=== PATIENT | female | born 1945 | race Caucasian/White ===

== ENCOUNTER → 2016-08-20 | Outpatient (CLI) | payer OTHER ==
[~2016-08-20] MED LIST: BLOOD PRESSURE MED PO; CHOLESTEROL MED PO; DIURETIC PO; DOLOBID PO; GLUC850T OR; LOTREL OR; LOVA40TA OR; METF750T OR; SPIR25TA2 OR; SYNT150T OR; THYROID MED PO; [UNRECOGNIZED DRUG - OTHER] OR
--- NOTE | 2016-08-20 08:39 | REPMRS ---
Patient History The patient states she has not had a clinical breast exam in over a year. Patient is postmenopausal and is nulliparous. Family history of breast cancer in mother at age 50 or over, breast cancer in maternal aunt at age 50 or over, and prostate cancer in 2 brothers at age 50 or over. Digital Woman Screen Mammo: August 20, 2016 - Exam #: [id number] Bilateral CC and MLO view(s) were taken. Technologist: Narda Haskins, Technologist Prior study comparison: June 11, 2015, digital woman screen mammo performed at [facility]. April 23, 2014, digital woman screen mammo performed at [facility]. March 27, 2013, digital woman screen mammo performed at [facility]. FINDINGS: There are scattered fibroglandular densities. There has been no change in the appearance of the mammogram from the prior studies. There is a mild amount of scattered fibroglandular density which is fairly symmetric. There is no interval development of dominant mass, architectural distortion, or clustered microcalcification suggestive of malignancy. ASSESSMENT: BI-RADS/ACR category 1 mammogram. Negative. Recommendation Routine screening mammogram in 1 year (for women over age 40). This mammogram was interpreted with the aid of an FDA-approved computer-aided dectection system. Electronically Signed By: Hany Cruz MD 08/20/16 0839
== END ==
LOC: M WHC 06:33
PROVIDERS: ATTEND Internal Medicine
DX: Z12.31 Encounter for screening mammogram for malignant neoplasm of breast (principal); Z80.3 Family history of malignant neoplasm of breast; Z78.0 Asymptomatic menopausal state

== ENCOUNTER 2016-12-08 06:29 | Outpatient (CLI) | payer OTHER ==
[~2016-12-08] VITALS: Ht 167.6 cm; Wt 117.9 kg
[~2016-12-08 06:29] MED LIST changes: +ATOR40TA75 PO; +BENA20TA8 PO; +CALTCHW4 PO; +CENT1TAB PO; +LEVO137T2 PO; +METF750T PO; +OCUVCAP PO; +SPIR25TA2 PO; +TYLE650T35 PO
[2016-12-08] MEDS ORDERED: NS 1,000 ML IV ONE (07:15)
[2016-12-08] MEDS ORDERED: PROPOFOL 500 MG/50 ML VIAL As Ordered ONE (08:04)
[2016-12-08] MEDS ORDERED: LIDOCAINE 2% INJ 100 MG/5 ML SDV (FOR ANES.) As Ordered ONE (08:04)
--- NOTE | 2016-12-08 08:23 | ROOR ---
Patient Name: Saige Arzola Procedure Date: 12/08/2016 8:01 AM Date of : 1945 Age: 71 Room: [facility] Gender: Female Note Status: Finalized Procedure: Colonoscopy Indications: High risk colon cancer surveillance: Personal history of colonic polyps Providers: Enrique HYDE MD Referring MD: LISA MILNER JR, MD Requesting Provider: Medicines: Monitored Anesthesia Care Complications: No immediate complications. Procedure: Pre-Anesthesia Assessment: - The heart rate, respiratory rate, oxygen saturations, blood pressure, adequacy of pulmonary ventilation, and response to care were monitored throughout the procedure. The Colonoscope was introduced through the anus and advanced to the cecum, identified by appendiceal orifice and ileocecal valve. The colonoscopy was performed without difficulty. The patient tolerated the procedure well. The quality of the bowel preparation was adequate. Findings: (EXAM: Complete, PREP:Adequate) Two sessile polyps were found in the ascending colon. The polyps were diminutive in size. These polyps were removed with a jumbo cold forceps. Resection and retrieval were complete. The exam was otherwise without abnormality. Impression: - (EXAM: Complete, PREP:Adequate) - Two diminutive polyps in the ascending colon, removed with a jumbo cold forceps. Resected and retrieved. - The examination was otherwise normal. Recommendation: - Telephone endoscopist for pathology results in 2 weeks. - If the pathology report reveals adenomatous tissue, then repeat the colonoscopy for surveillance in 5 years. Enrique Hyde MD Enrique HYDE MD 12/08/2016 8:22:55 AM This report has been signed electronically. Number of Addenda: 0 Note Initiated On: 12/08/2016 8:01 AM Estimated Blood Loss: Estimated blood loss: none.
[2016-12-08 08:45] VITALS: BP 142/79
== END 2016-12-08 09:00 | disposition home or self-care (01) ==
LOC: M OPP 06:29
PROVIDERS: ATTEND Internal Medicine Gastroenterology
DX: Z12.11 Encounter for screening for malignant neoplasm of colon (principal); Z86.010 Personal history of colon polyps; D12.2 Benign neoplasm of ascending colon; K59.00 Constipation, unspecified; I10 Essential (primary) hypertension; E78.5 Hyperlipidemia, unspecified; E11.9 Type 2 diabetes mellitus without complications; E03.9 Hypothyroidism, unspecified; E66.9 Obesity, unspecified; M19.90 Unspecified osteoarthritis, unspecified site; G47.8 Other sleep disorders; M54.9 Dorsalgia, unspecified; Z79.84 Long term (current) use of oral hypoglycemic drugs; Z79.899 Other long term (current) drug therapy; Z80.3 Family history of malignant neoplasm of breast; Z80.1 Family history of malignant neoplasm of trachea, bronchus and lung; Z80.42 Family history of malignant neoplasm of prostate; Z80.0 Family history of malignant neoplasm of digestive organs

== ENCOUNTER → 2017-07-15 | Outpatient (CLI) | payer OTHER | LOC: M RAD 12:18 | DX: K11.20 Sialoadenitis, unspecified (principal); R93.8 Abnormal findings on diagnostic imaging of other specified body structures | CPT/HCPCS: 70490 ==

== ENCOUNTER → 2017-09-09 | Outpatient (CLI) | payer OTHER | LOC: M WHC 06:36 | DX: Z12.31 Encounter for screening mammogram for malignant neoplasm of breast (principal) | CPT/HCPCS: 77067 ==

== ENCOUNTER → 2018-09-09 | Outpatient (REF) | payer MEDICARE ==
[~2018-09-09] MED LIST changes: +SPIR-10 PO; -SPIR25TA2 PO
== END ==
LOC: M SFHCWAGY 11:53
PROVIDERS: ATTEND Family Medicine
DX: N90.4 Leukoplakia of vulva (principal)
CPT/HCPCS: 11104; 88305; G0463

== ENCOUNTER → 2018-10-04 | Outpatient (REF) ==
[2018-10-05 09:02] LABS: RUBELLA IgG QUALITATIVE SUSCEPTIBLE (IMMUNE)
== END ==
LOC: M LAB 09:11
PROVIDERS: ATTEND Nurse Practitioner Adult Health
DX: Z00.00 Encounter for general adult medical examination without abnormal findings (principal)

== ENCOUNTER → 2018-10-20 | Outpatient (REF) | payer MEDICARE ==
[2018-10-20 16:04] LABS: FOLATE > 24.0 NG/ML (>5.4); VITAMIN B12 LEVEL 693 PG/ML (247-911)
== END ==
LOC: M LABDRAW1 13:48
PROVIDERS: ATTEND Internal Medicine Endocrinology, Diabetes & Metabolism
DX: E11.65 Type 2 diabetes mellitus with hyperglycemia (principal)

== ENCOUNTER → 2018-11-14 | Outpatient (CLI) | payer MEDICARE ==
--- NOTE | 2018-11-14 09:19 | REPMRS ---
Patient History The patient states she has not had a clinical breast exam in over a year. Patient is postmenopausal and is nulliparous. Family history of breast cancer at age 50 or over in mother, prostate cancer at age 50 or over in brother, prostate cancer at age 50 or over in brother, breast cancer at age 50 or over in maternal aunt, breast cancer at age 32 in niece. Digital Woman Screen Mammo: November 14, 2018 - Exam #: [id number] Bilateral CC and MLO view(s) were taken. Technologist: Joelle Robert Technologist Prior study comparison: September 09, 2017, bilateral digital woman screen mammo performed at [facility]. August 20, 2016, digital woman screen mammo performed at [facility]. June 11, 2015, digital woman screen mammo performed at [facility]. FINDINGS: There are scattered fibroglandular densities. This is stable 1.1 cm nodule in the anterior third of the left breast superiorly. There has been no change in the appearance of the mammogram from the prior studies. There is a mild amount of scattered fibroglandular density which is fairly symmetric. There is no interval development of dominant mass, architectural distortion, or grouped microcalcification suggestive of malignancy. 3-D tomosynthesis shows no additional findings. Assessment: BI-RADS/ACR category 2 mammogram. Benign Findings. Recommendation Routine screening mammogram of both breasts in 1 year (for women over age 40). This patient's Lifetime Breast Cancer Risk is estimated at 10.7 %. This mammogram was interpreted with the aid of an FDA-approved computer-aided dectection system. Electronically Signed By: Hany Cruz MD 11/14/18 0919
== END ==
LOC: M WHC 07:17
PROVIDERS: ATTEND Internal Medicine
DX: Z12.31 Encounter for screening mammogram for malignant neoplasm of breast (principal); Z78.0 Asymptomatic menopausal state; Z80.3 Family history of malignant neoplasm of breast

== ENCOUNTER → 2020-02-16 | Outpatient (CLI) | payer MEDICARE ==
[~2020-02-16] MED LIST changes: +ACET650T61 PO; -METF750T PO; +METF750T36 PO; -TYLE650T35 PO
--- NOTE | 2020-02-16 09:19 | REPMRS ---
Patient History The patient states she has not had a clinical breast exam in over a year. Patient is postmenopausal and is nulliparous. Family history of breast cancer at age 50 or over in mother, prostate cancer at age 50 or over in brother, prostate cancer at age 50 or over in brother, breast cancer at age 50 or over in maternal aunt, breast cancer at age 32 in niece. 3D TOMOSYNTHESIS WAS PERFORMED. [facility] lifetime risk for breast cancer is 10.0%. Volpara breast density b. Digital Woman Screen Mammo: February 16, 2020 - Exam #: [id number] Bilateral CC and MLO view(s) were taken. Technologist: Wen Jean Baptiste, Technologist Prior study comparison: November 14, 2018, bilateral digital woman screen mammo performed at [facility]. September 09, 2017, bilateral digital woman screen mammo performed at [facility]. FINDINGS: There are scattered fibroglandular densities. There has been no change in the appearance of the mammogram from the prior studies. There is a mild amount of residual fibroglandular tissue which is fairly symmetric. There is no interval development of dominant mass, architectural distortion, or clustered microcalcification suggestive of malignancy. Assessment: BI-RADS/ACR category 1 mammogram. Negative Mammogram. Recommendation Routine screening mammogram in 1 year (for women over age 40). This mammogram was interpreted with the aid of an FDA-approved computer-aided dectection system. Electronically Signed By: Joseph Whitmore MD 02/16/20 0918
== END ==
LOC: M WHC 06:21
PROVIDERS: ATTEND Internal Medicine
DX: Z12.31 Encounter for screening mammogram for malignant neoplasm of breast (principal); Z80.3 Family history of malignant neoplasm of breast; Z80.42 Family history of malignant neoplasm of prostate

== ENCOUNTER → 2020-09-26 | Outpatient (CLI) | payer MEDICARE ==
--- NOTE | 2020-09-26 09:58 | DEXAMM ---
INDICATION: M81.0 AGE RELATED OSTEOPOROSIS. COMPARISON: Comparison densitometry studies November 25, 2006 and October 13, 2001.. TECHNIQUE: Bone density was measured using dual-energy x-ray absorptionmetry (DEXA). FINDINGS: AP SPINE L1-L4 BMD 1.204 g/cm2 Young Adult T-Score 0.1 Age Matched Z-Score 1.8. LT FEMUR, TOTAL BMD 1.141 g/cm2 Young Adult T-Score 1.1 Age Matched Z-Score 2.8. LT NECK BMD 0.923 g/cm2 Young Adult T-Score -0.8 Age Matched Z-Score 1.1. RT FEMUR, TOTAL BMD 1.152 g/cm2 Young Adult T-Score 1.1 Age Matched Z-Score 2.9. RT NECK BMD 0.975 g/cm2 Young Adult T-Score -0.5 Age Matched Z-Score 1.5. IMPRESSION: There is normal bone density of the spine. There is normal bone density of the left hip. There is normal bone density of the right hip. The density of the spine has increased 5.6% since the initial exam on October 13, 2001. The density of the spine decreased 1.6% since most recent exam on November 25, 2006. The density of the left hip has decreased 3.7% since initial exam on October 13, 2001. The density of the left hip has decreased 4.4% since most recent exam on November 25, 2006. The density of the right hip has decreased 2.4% since the initial exam on October 13, 2001. The density of the right hip has decreased 2.3% since the most recent exam on November 25, 2006. FOLLOW-UP: Recommendation for the next bone density exam: 5 years. <Electronically signed by Hany Cruz > 09/26/20 0954
== END ==
LOC: M WHC 08:45
PROVIDERS: ATTEND Internal Medicine
DX: M81.0 Age-related osteoporosis without current pathological fracture (principal)

== ENCOUNTER 2020-11-29 14:11 | Emergency (ER) | payer MEDICARE ==
[~2020-11-29] VITALS: Ht 167.6 cm; Wt 116.6 kg
--- NOTE | 2020-11-29 15:09 | REP ---
INDICATION: CHEST PAIN. COMPARISON: Comparison chest x-ray is from February 27, 2010. TECHNIQUE: Portable upright AP chest radiograph. FINDINGS: The lungs are well inflated and free of infiltrate. Pleural angles are sharp. Heart size is normal. Pulmonary vasculature is not increased. There are degenerative changes in the thoracic spine. IMPRESSION: No active disease. <Electronically signed by Hany Cruz > 11/29/20 [id number]
[2020-11-29 16:16] LABS: BASO # 0.1 10^3/uL (0.0-0.2); BASO % 0.9 % (0.0-1.0); EOS # 0.1 10^3/uL (0.0-0.5); EOS % 2.4 % (0.0-3.0); HEMATOCRIT 40.8 % (36.0-47.0); HEMOGLOBIN 13.5 g/dl (12.0-15.5); LYMPH # 1.4 10^3/uL (1.5-5.0); LYMPH % 24.9 % (24.0-44.0); MEAN CORPUSCULAR HGB CONC 33.1 g/dl (32.0-36.5); MEAN CORPUSCULAR VOLUME 93.8 fl (80.0-96.0); MONO # 0.4 10^3/uL (0.0-0.8); MONO % 7.5 % (2.0-8.0); NEUTROPHILS # 3.7 10^3/uL (1.5-8.5); NEUTROPHILS % 64.1 % (36.0-66.0); PLATELET COUNT, AUTOMATED 158 10^3/uL (150-450); RED BLOOD COUNT 4.35 10^6/uL (4.00-5.40); WHITE BLOOD COUNT 5.8 10^3/uL (4.0-10.0)
[2020-11-29 16:47] LABS: ALBUMIN 3.5 GM/DL (3.2-5.2); ALT/SGPT 35 U/L (12-78); AMYLASE 77 U/L (25-115); BILIRUBIN,DIRECT < 0.1 MG/DL (0.0-0.2); BILIRUBIN,TOTAL 0.5 MG/DL (0.2-1.0); BLOOD UREA NITROGEN 18 MG/DL (7-18); CALCIUM LEVEL 9.4 MG/DL (8.8-10.2); CARBON DIOXIDE LEVEL 26 MEQ/L (21-32); CHLORIDE LEVEL 110 MEQ/L (98-107); CK-MB VALUE MASS < 1.0 NG/ML (<3.6); CPK CREATINE PHOSPHOKINASE 76 U/L (26-192); GLOMERULAR FILTRATION RATE > 60.0 (>39); GLUCOSE, FASTING 133 MG/DL (70-100); LIPASE 102 U/L (73-393); MB/CK RELATIVE INDEX 1.32 (< OR =4); SODIUM LEVEL 142 MEQ/L (136-145); TOTAL PROTEIN 6.8 GM/DL (6.4-8.2); TROPONIN I < 0.02 NG/ML (< 0.10)
--- NOTE | 2020-11-29 17:38 | REP ---
INDICATION: epigastric pain. COMPARISON: None. TECHNIQUE: Real-time sonographic evaluation of right upper quadrant performed. FINDINGS: The gallbladder demonstrates no evidence of intraluminal sludge or calculi, wall thickening or pericholecystic fluid. There is no intrahepatic or extrahepatic biliary dilatation, common bile duct measures 3 mm in maximum diameter. The liver demonstrates 2 heterogeneous solid masses in the left lobe of the liver, 3.4 x 2.2 x 3.5 cm and 2.4 x 1.5 x 2.9 cm. The visualized pancreas is grossly unremarkable, not well seen due to overlying bowel gas. The right kidney demonstrates no hydronephrosis, with a normal size of 11.8 cm in length. No free fluid is seen. IMPRESSION: Two solid masses in the left lobe of the liver having maximum diameters of 3.5 cm and 2.9 cm. Recommend further evaluation with dedicated MRI or CT of the liver with and without contrast. <Electronically signed by Joseph Whitmore > 11/29/20 [id number]
[2020-11-29 17:45] VITALS: BP 169/84
[2020-11-29] MEDS ORDERED: KETOROLAC 30 MG/ML 1ML VIAL IV ONE (17:45)
[2020-11-29] MEDS ORDERED: IBUP-1022 PO (18:23)
--- NOTE | 2020-11-30 06:44 | ED PDOC ---
Post-Departure Follow-Up US faxed to dr gibson for fu Gracia Gonzales MD Nov 30, 2020 06:44
--- NOTE | 2020-12-02 16:31 | ECGEPIP ---
[facility] - ED Test Date: 2020-11-29 Pat Name: HUGO WAGNER Department: Room: - Gender: Female Material Specialist: vilma : 1945 Requested By: DINORAH Menjivar Order Number: [id number] Reading MD: Rachel De La Rosa Measurements Intervals [place] Rate: 82 P: 42 MI: 172 QRS: 47 QRSD: 86 T: 43 QT: 404 QTc: 472 Interpretive Statements Normal sinus rhythm NSTTW abnormalities No prior Electronically Signed on 12-02-2020 16:31:43 EDT by Rachel De La Rosa
== END 2020-11-29 18:55 | disposition home or self-care (01) ==
LOC: M ED 14:11
DX: R10.13 Epigastric pain (principal); K76.89 Other specified diseases of liver; M51.34 Other intervertebral disc degeneration, thoracic region; E03.9 Hypothyroidism, unspecified; E78.5 Hyperlipidemia, unspecified; Z90.710 Acquired absence of both cervix and uterus; Z88.0 Allergy status to penicillin; Z79.899 Other long term (current) drug therapy; Z79.890 Hormone replacement therapy
CPT/HCPCS: 71045; 76705; 80048; 80076; 82150; 82550; 82553; 83690; 84484; 85025; 93005; 93041; 94760; 96374; 99285; J1885

== ENCOUNTER → 2020-12-05 | Outpatient (REF) | payer MEDICARE ==
[~2020-12-05] MED LIST changes: +IBUP-1022 PO
== END ==
LOC: M LAB REF 13:46
PROVIDERS: ATTEND Internal Medicine
DX: R06.00 Dyspnea, unspecified (principal); R07.9 Chest pain, unspecified

== ENCOUNTER → 2020-12-13 | Outpatient (CLI) | payer MEDICARE ==
[~2020-12-13] MED LIST changes: +GASTROGRAFIN SOLUTION 30ML (Q9963) As Ordered ONE; +ISOVUE-370 76% 100ML VIAL As Ordered ONE
--- NOTE | 2020-12-15 04:19 | REP ---
INDICATION: LIVER MASSES SEEN ON GB U/S. COMPARISON: None TECHNIQUE: Axial precontrast, contrast-enhanced and delayed images of the abdomen using oral and 100 cc Isovue 370 intravenous contrast material. Coronal and sagittal reformations obtained. This CT examination was performed using the following dose reduction techniques: Automated exposure control, adjustment of mA and/or kv according to the patient's size, and the use of iterative reconstruction technique. FINDINGS: Two lesions within the left lobe of the liver measuring roughly 3.2 cm and 2.5 cm each have enhancement patterns consistent with hemangioma. Spleen, pancreas, gallbladder, bilateral adrenal glands are normal. Kidneys demonstrate few scattered small subcentimeter hypodensities suggesting cysts. The visualized enteric system is unremarkable.. No ascites. No free air. No intraperitoneal or retroperitoneal adenopathy. Abdominal aorta and vasculature appear normal. Musculoskeletal structures are intact and without acute osseous abnormality. IMPRESSION: 1. Two hepatic lesions within the left lobe most compatible with hemangiomas by CT evaluation. 2. No further acute abdominal process appreciated. <Electronically signed by Devin Maria > 12/15/20 3122
== END ==
LOC: M RAD 11:07
PROVIDERS: ATTEND Internal Medicine
DX: R93.2 Abnormal findings on diagnostic imaging of liver and biliary tract (principal)
CPT/HCPCS: 74170; Q9963; Q9967

== ENCOUNTER → 2021-03-14 | Outpatient (CLI) | payer MEDICARE ==
[~2021-03-14] MED LIST changes: +BENA-8 PO; -BENA20TA8 PO; -GASTROGRAFIN SOLUTION 30ML (Q9963) As Ordered ONE; -ISOVUE-370 76% 100ML VIAL As Ordered ONE
== END ==
LOC: M WHC 07:36
PROVIDERS: ATTEND Internal Medicine
DX: Z12.31 Encounter for screening mammogram for malignant neoplasm of breast (principal); Z80.3 Family history of malignant neoplasm of breast

== ENCOUNTER → 2021-08-15 | Outpatient (REF) | payer MEDICARE | LOC: M LAB REF 16:31 | PROVIDERS: ATTEND Internal Medicine | DX: Z51.81 Encounter for therapeutic drug level monitoring (principal); N18.31 Chronic kidney disease, stage 3a ==

== ENCOUNTER → 2022-07-27 | Outpatient (CLI) | payer MEDICARE | LOC: M WHC 08:42 | PROVIDERS: ATTEND Internal Medicine | DX: Z12.31 Encounter for screening mammogram for malignant neoplasm of breast (principal) ==

== ENCOUNTER → 2023-02-11 | Outpatient (CLI) | payer MEDICARE ==
[~2023-02-11] MED LIST changes: +GLIP5TAB17 PO; +LEVO150T7 PO; +METF-838 PO
[2023-02-11 14:36] LABS: BLOOD UREA NITROGEN 16 MG/DL (9-23); CREATININE FOR GFR 0.67 MG/DL (0.55-1.30); GLOMERULAR FILTRATION RATE > 60.0 (>39)
== END ==
LOC: M PLALAB 10:31
PROVIDERS: ATTEND Otolaryngology
DX: K11.20 Sialoadenitis, unspecified (principal)

== ENCOUNTER → 2023-02-15 | Outpatient (CLI) | payer MEDICARE ==
[~2023-02-15] MED LIST changes: +ISOVUE-370 76% 100ML VIAL ONE
== END ==
LOC: M PLAIMG 13:51
PROVIDERS: ATTEND Otolaryngology
DX: K11.20 Sialoadenitis, unspecified (principal)
CPT/HCPCS: 70491; Q9967

== ENCOUNTER → 2023-07-29 | Outpatient (CLI) | payer OTHER ==
[~2023-07-29] MED LIST changes: -ISOVUE-370 76% 100ML VIAL ONE
== END ==
LOC: M WHC 09:41
PROVIDERS: ATTEND Internal Medicine
DX: Z12.31 Encounter for screening mammogram for malignant neoplasm of breast (principal)

== ENCOUNTER → 2024-10-27 | Outpatient (CLI) | payer MEDICARE | LOC: M WHC 10:22 | PROVIDERS: ATTEND Internal Medicine | DX: Z12.31 Encounter for screening mammogram for malignant neoplasm of breast (principal); R92.323 Mammographic fibroglandular density, bilateral breasts ==